=== PATIENT | female | born 1985 | race Caucasian/White ===

== ENCOUNTER 2023-03-31 07:17 | Outpatient (AMB) | payer OTHER, SELFPAY ==
--- NOTE | 2023-03-31 07:18 | A.OFFVIS_ITS ---
Intake Vital Signs 03/31/23 07:21 Height 5 ft 5 in Weight 202 lb 13.204 oz BMI 33.7 BP 108/71 Blood Pressure Location Lt brachial Position Sitting Pulse 75 Intake Visit Reasons: vomit Intake Note: Brii presents in the office as a new patient for N/V. CC: She states nausea, vomiting, and she also is having pains in her stomach. It is all over her stomach. No irregular bowel movements. Mechanical Detailer Required: No Allergies No Known Allergies Allergy (Unverified 03/31/23 07:22) Medication List - Last Reconciled 03/31/23 by Jaymie Ortega PA-C aripiprazole 5 mg PO DAILY lamotrigine 150 mg PO BID lorazepam mg PO HPI HPI Comments History of Present Illness Details A 37 y/o F- since 2015- n/v daily- awakens in morning- with diffuse- wandering abdominal pain - vomits bile like - no wt loss- She sometimes need to force vomiting-She admits to anxiety being cause of 12- 18 hours of vomiting- goes to ED- gets hydrated- @ [facility].Last event last Friday- Was treated for nausea and anxiety-[facility] She was worked up at [facility] 2016- colonoscopy- no findings She has made dietary changes-no improvement- Psycho therapy- weekly She has been smoking MJ since age 12- she does not want to be labeled- She saw Dr. 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- Lizette transferred to [facility]-Followed by ENT for vertigo- No weight loss, hematemesis, hematochezia fever or chills [facility] Medical History (Updated 03/31/23 @ 11:38 by Jaymie Ortega PA-C) Marijuana smoker, continuous Nausea & vomiting Surgical History Hx of colonoscopy Family History Mother Colitis Social History (Updated 03/31/23 @ 07:59 by Jaymie Ortega PA-C) Household Members: Spouse Household Members Other:: 2 kids Comment: rarely Patient Tobacco Use Status: Never used Tobacco Substance Use Type: Marijuana Current occupational status: employed Current occupation: MA- Review of Systems Const All systems reviewed & are unremarkable except as noted in HPI and below Card Denies chest pain and Denies dyspnea Resp Denies dyspnea GI Reports abdominal pain, Denies hematochezia, Denies change in bowel habits, Reports nausea and Reports vomiting Psych Reports anxiety, Denies homicidal ideation and Denies suicidal ideation Physical Exam Vital Signs: Last Vital Signs Pulse 75 03/31/23 07:21 BP 108/71 03/31/23 07:21 BMI result Body Mass Index 33.7 Const General: healthy appearing, comfortable, no acute distress and anxious Orientation/consciousness: patient oriented x3 Limitations: no limitations Eyes Sclerae: sclerae normal Resp Effort & Inspection: normal respiratory effort and able to speak in complete sentences Auscultation: clear to auscultation bilaterally, no rales, no rhonchi and no wheezes Cardio Rate: regular rate Rhythm: regular rhythm Heart sounds: S1 normal heart sound present and S2 normal heart sound present GI Palpation (GI): nontender Percussion: Yes normal to percussion Auscultation: normal bowel sounds Skin General skin exam: no rashes or lesions noted Neuro General: patient oriented x3 Extrem General: Yes full ROM Psych Appearance: grossly normal and well kempt Speech and movement: Pressured speech present Affect: Anxious affect present Attitude: Guarded attititude/behavior present Thought process: Racing thoughts present Assessment & Plan Assessment & Plan (1) Nausea & vomiting: Comment: Very anxious 29-year-old female previous GI workup Continue Zofran- Weekly therapist consider GES Code(s): R11.2 - Nausea with vomiting, unspecified Plan: Zofran Will get abdominal ultrasound assess gallbladder Will have her follow back with MD (2) Anxiety: Comment: Extremely anxious Code(s): F41.9 - Anxiety disorder, unspecified Plan: Continue psychotherapy (3) Marijuana smoker, continuous: Comment: Marijuana since age 12, daily use States diagnosed with cannabis hyperemesis-she disagrees Somewhat difficult to assess further- Code(s): F12.90 - Cannabis use, unspecified, uncomplicated Plan: Discussed- Plan F/U after labs- U/S- Dr. Coy- Orders: Orders US abdomen complete Today F41.9 - Anxiety disorder, unspecified, R11.2 - Nausea with vomiting, unspecified Thyroid Stimulating Hormone Today F41.9 - Anxiety disorder, unspecified, R11.2 - Nausea with vomiting, unspecified C Reactive Protein Today R11.2 - Nausea with vomiting, unspecified Erythrocyte Sedimentation Rate Today F41.9 - Anxiety disorder, unspecified, R11.2 - Nausea with vomiting, unspecified NM gastric emptying study Today R11.2 - Nausea with vomiting, unspecified Comprehensive Met. Panel Today K58.9 - Irritable bowel syndrome without diarrhea Complete Blood Count Auto Diff Today R11.2 - Nausea with vomiting, unspecified Medications: New ondansetron 4 mg PO DAILY 20 tabs 0RF ondansetron 4 mg PO DAILY 20 tabs 1RF Patient Instructions: Discussed daily marijuana use Continue psychotherapy Labs-update U/S- assess gallbladder GES F/U Dr. Coy-she is agreeable Encouraged to call questions or concerns Coding Level of Care Code New Pt Level 4 (64657) Diagnoses Nausea & vomiting R11.2 Anxiety F41.9 Marijuana smoker, continuous F12.90 Time Spent (min) 40
[2023-03-31 07:21] VITALS: BP 108/71; PULSE 75; BMI 33.7
== END 2023-03-31 08:40 | disposition home or self-care (01) ==
PROVIDERS: PCP Nurse Practitioner Family; Visit Provider Physician Assistant
DX: R11.2 Nausea with vomiting, unspecified (principal); F41.9 Anxiety disorder, unspecified; F12.90 Cannabis use, unspecified, uncomplicated
CPT/HCPCS: 99204

== ENCOUNTER → 2023-03-31 07:17 | Outpatient (BNVA) | payer OTHER, SELFPAY | PROVIDERS: PCP Nurse Practitioner Family; Visit Provider Physician Assistant ==